=== PATIENT | female | born 1965 | race Caucasian/White ===

== ENCOUNTER 2017-02-26 20:42 | Emergency (ER) | payer OTHER ==
[~2017-02-26] VITALS: Ht 162.6 cm; Wt 77.5 kg
[~2017-02-26 20:42] MED LIST: ALLEGRA ALLERGY60 MG PO; VITAMIN D5000 UNI1 PO
[2017-02-27] MEDS ORDERED: MOTRIN600 MG PO (01:15)
[2017-02-27] MEDS ORDERED: SKELAXIN800 MG PO (01:15)
[2017-02-27 01:43] VITALS: BP 164/106
== END 2017-02-27 01:42 | disposition home or self-care (01) ==
LOC: EME 20:42
DX: S16.1XXA Strain of muscle, fascia and tendon at neck level, initial encounter (principal); S06.0X9A Concussion with loss of consciousness of unspecified duration, initial encounter; M25.511 Pain in right shoulder; V49.60XA Unspecified car occupant injured in collision with unspecified motor vehicles in traffic accident, initial encounter; Z87.891 Personal history of nicotine dependence
CPT/HCPCS: 70450; 99281; 99284